=== PATIENT | female | born 1970 | race Caucasian/White ===

== ENCOUNTER 2017-05-09 19:15 | Emergency (ER) | payer OTHER ==
[~2017-05-09] VITALS: Ht 162.5 cm; Wt 72.6 kg
[~2017-05-09 19:15] MED LIST: AMOXICILLIN500 M3 PO; ANUSOL HC30 GM PO; ANUSOL-HC25 MG R; ATIVAN1 MG; AUGMENTIN 500 M1 TAB PO; AUGMENTIN 875875 MG PO; BACTRIM DS 8001 TA1 PO; CATAFLAM50 MG PO; CIPROFLOXACIN500 MG PO; CLINDAMYCIN HC300 MG PO; CLINDAMYCIN150 MG PO; COGENTIN0.5 MG PO; COLACE100 MG PO; DIFLUCAN150 MG PO; HALDOL DECA100 MG/ML IM; HYDROCODONE BIT1 T11 PO; KEFLEX500 MG PO; LOTRIMIN1% T; MEDROL DOSEPAK4 MG PO; METFORMIN500 MG PO; PENICILLIN VK500 MG PO; PREDNISONE20 M1 PO; PROLIXIN PO; SIMVASTATIN5 MG; TESSALON PERLE100 M1 PO; TRAMADOL HCL50 MG PO; ULTRAM50 MG PO; VERMOX100 MG PO; VIBRAMYCIN100 MG PO; VICODIN 5/500 505 MG PO; VISTARIL25 M1 PO; ZOLOFT20 MG/ML PO; ZYRTEC10 MG PO
[2017-05-09 19:41] VITALS: BP 139/70
[2017-05-09 20:27] LABS: BASO # 0.1 10*3/uL (0.0-0.1); BASO % 0.3 % (0.0-1.0); EOS % 0.2 % (1.0-4.0); HEMATOCRIT 46.5 % (37.0-47.0); LYMPH # 4.4 10*3/uL (1.3-4.4); LYMPH % 25.4 % (27.0-41.0); MEAN CELL VOLUME 86.1 fl (81.0-99.0); MEAN CORPUSCULAR HGB 29.6 pg (27.0-31.0); MEAN CORPUSCULAR HGB CONC 34.4 g/dl (33.0-37.0); MEAN PLATELET VOLUME 10.7 fl (9.6-12.3); MONO # 1.2 10*3/uL (0.1-1.0); MONO % 6.9 % (3.0-9.0); NEUT # 11.6 10*3/uL (2.3-7.9); NEUT % 66.9 % (47.0-73.0); PLATELET COUNT AUTOMATED 241 10*3/uL (130-400); RED CELL DISTRI WIDTH 13.4 % (0-14.5); WHITE BLOOD COUNT 17.4 10*3/uL (4.8-10.8)
[2017-05-09 20:37] LABS: ACT PARTIAL THROMBO TIME 26.6 SECONDS (20.8-31.5)
[2017-05-09 20:51] LABS: ALBUMIN 4.7 gm/dl (3.1-4.5); ALKALINE PHOSPHATASE 54 U/L (45-117); BUN 6 mg/dl (7-24); CHLORIDE 103 mmol/L (98-107); CREATININE 0.78 mg/dL (0.55-1.02); POTASSIUM 3.3 mmol/L (3.5-5.1); SGOT/AST 16 IU/L (3-35); SGPT/ALT 20 U/L (12-78); SODIUM 138 mmol/L (136-145); TOTAL PROTEIN 8.7 gm/dL (6.4-8.2)
[2017-05-09 21:02] LABS: BETA-HCG, QUANT < 1.0 mIU/mL (1-3); TROPONIN I < 0.015 ng/ml (<0.045)
== END 2017-05-09 21:03 | disposition left against medical advice (07) ==
LOC: ED 19:15
PROVIDERS: Student in an Organized Health Care Education/Training Program
DX: R00.0 Tachycardia, unspecified (principal); I10 Essential (primary) hypertension; E11.9 Type 2 diabetes mellitus without complications; J44.9 Chronic obstructive pulmonary disease, unspecified; F17.200 Nicotine dependence, unspecified, uncomplicated; Z79.899 Other long term (current) drug therapy

== ENCOUNTER 2017-06-03 05:36 | Emergency (ER) | payer OTHER ==
[~2017-06-03] VITALS: Ht 162.5 cm; Wt 68.0 kg
[2017-06-03 06:16] LABS: BILIRUBIN NEGATIVE (NEGATIVE); BLOOD NEGATIVE (NEGATIVE); CLARITY CLEAR (CLEAR); COLOR YELLOW (YELLOW); GLUCOSE 3+ (NEGATIVE); KETONE NEGATIVE (NEGATIVE); LEUKO ESTERASE NEGATIVE (NEGATIVE); NITRITE NEGATIVE (NEGATIVE); PH 5.5 (5.0-9.0); SPECIFIC GRAVITY <= 1.005 (1.005-1.030); UROBILINOGEN 0.2 E.U./dl (0.2-1.0)
[2017-06-03 06:22] LABS: BASO # 0.1 10*3/uL (0.0-0.1); BASO % 0.5 % (0.0-1.0); EOS # 0.1 10*3/uL (0.0-0.4); EOS % 0.7 % (1.0-4.0); HEMATOCRIT 41.6 % (37.0-47.0); HEMOGLOBIN 14.4 g/dl (12.0-16.0); LYMPH # 2.8 10*3/uL (1.3-4.4); MEAN CELL VOLUME 86.1 fl (81.0-99.0); MEAN CORPUSCULAR HGB 29.8 pg (27.0-31.0); MEAN CORPUSCULAR HGB CONC 34.6 g/dl (33.0-37.0); MEAN PLATELET VOLUME 10.9 fl (9.6-12.3); MONO # 0.9 10*3/uL (0.1-1.0); MONO % 8.2 % (3.0-9.0); NEUT # 6.6 10*3/uL (2.3-7.9); NEUT % 63.3 % (47.0-73.0); PLATELET COUNT AUTOMATED 223 10*3/uL (130-400); RED BLOOD COUNT 4.83 10*6/uL (4.10-5.10); RED CELL DISTRI WIDTH 13.2 % (0-14.5); WHITE BLOOD COUNT 10.4 10*3/uL (4.8-10.8)
[2017-06-03 06:30] LABS: URINE AMPHETAMINES < 1000 (1000ng/ml); URINE BARBITURATES < 200 (200ng/ml); URINE BENZODIAZEPINES < 200 (200ng/ml); URINE CANNABINOIDS (THC) < 50 (50ng/ml); URINE COCAINE < 300 (300ng/ml); URINE METHADONE < 300 (300ng/ml); URINE OPIATES < 300 (300ng/ml)
[2017-06-03 06:34] LABS: URINE PHENCYCLIDINE < 25 (25ng/ml)
[2017-06-03 06:34] LABS: BUN 5 mg/dl (7-24); CHLORIDE 102 mmol/L (98-107); CREATININE 0.75 mg/dL (0.55-1.02); POTASSIUM 3.5 mmol/L (3.5-5.1); SODIUM 136 mmol/L (136-145)
[2017-06-03 06:37] LABS: BACTERIA TRACE
[2017-06-03 06:43] LABS: ETHYL ALCOHOL < 3.0 mg/dl (<3)
[2017-06-03 06:45] LABS: ACETAMINOPHEN (TYLENOL) < 2.0 ug/ml (10-30); B-hCG (QUALITATIVE) NEGATIVE (NEGATIVE)
[2017-06-03 16:09] VITALS: BP 105/60
== END 2017-06-03 17:21 | disposition home health service (06) ==
LOC: ED 05:36
PROVIDERS: Emergency Medicine Emergency Medical Services
DX: F23 Brief psychotic disorder (principal); F25.9 Schizoaffective disorder, unspecified; J44.9 Chronic obstructive pulmonary disease, unspecified; Z79.899 Other long term (current) drug therapy

== ENCOUNTER 2017-06-25 14:11 | Emergency (ER) | payer OTHER ==
[~2017-06-25] VITALS: Ht 165.1 cm; Wt 81.6 kg
[2017-06-25 14:39] LABS: BASO % 0.3 % (0.0-1.0); EOS % 0.5 % (1.0-4.0); HEMATOCRIT 44.4 % (37.0-47.0); HEMOGLOBIN 14.8 g/dl (12.0-16.0); LYMPH # 2.6 10*3/uL (1.3-4.4); LYMPH % 29.3 % (27.0-41.0); MEAN CELL VOLUME 87.2 fl (81.0-99.0); MEAN CORPUSCULAR HGB 29.1 pg (27.0-31.0); MEAN CORPUSCULAR HGB CONC 33.3 g/dl (33.0-37.0); MEAN PLATELET VOLUME 9.8 fl (9.6-12.3); MONO # 0.6 10*3/uL (0.1-1.0); MONO % 6.4 % (3.0-9.0); NEUT # 5.5 10*3/uL (2.3-7.9); NEUT % 62.8 % (47.0-73.0); PLATELET COUNT AUTOMATED 234 10*3/uL (130-400); RED BLOOD COUNT 5.09 10*6/uL (4.10-5.10); RED CELL DISTRI WIDTH 13.4 % (0-14.5); WHITE BLOOD COUNT 8.8 10*3/uL (4.8-10.8)
[2017-06-25 14:54] LABS: ALBUMIN 3.7 gm/dl (3.1-4.5); ALKALINE PHOSPHATASE 77 U/L (45-117); BUN 3 mg/dl (7-24); CHLORIDE 105 mmol/L (98-107); CREATININE 0.78 mg/dL (0.55-1.02); POTASSIUM 3.5 mmol/L (3.5-5.1); SGOT/AST 20 IU/L (3-35); SGPT/ALT 22 U/L (12-78); SODIUM 139 mmol/L (136-145); TOTAL PROTEIN 7.6 gm/dL (6.4-8.2)
[2017-06-25 14:58] LABS: ACETAMINOPHEN (TYLENOL) < 2.0 ug/ml (10-30); ETHYL ALCOHOL < 3.0 mg/dl (<3)
[2017-06-25 15:28] LABS: BILIRUBIN NEGATIVE (NEGATIVE); BLOOD NEGATIVE (NEGATIVE); CLARITY CLEAR (CLEAR); COLOR YELLOW (YELLOW); GLUCOSE 3+ (NEGATIVE); KETONE 3+ (NEGATIVE); LEUKO ESTERASE NEGATIVE (NEGATIVE); NITRITE NEGATIVE (NEGATIVE); UROBILINOGEN 0.2 E.U./dl (0.2-1.0)
[2017-06-25 15:37] LABS: URINE AMPHETAMINES < 1000 (1000ng/ml); URINE BARBITURATES < 200 (200ng/ml); URINE BENZODIAZEPINES < 200 (200ng/ml); URINE CANNABINOIDS (THC) < 50 (50ng/ml); URINE COCAINE < 300 (300ng/ml); URINE METHADONE < 300 (300ng/ml); URINE OPIATES < 300 (300ng/ml)
[2017-06-25 15:39] LABS: BACTERIA 1+; WBC 0-2 wbc/hpf (0-5)
[2017-06-25 15:41] LABS: URINE PHENCYCLIDINE < 25 (25ng/ml)
[2017-06-25 18:00] VITALS: BP 114/72
== END 2017-06-25 19:40 | disposition other institution (70) ==
LOC: ED 14:11
PROVIDERS: Physician Assistant
DX: F23 Brief psychotic disorder (principal); Z98.890 Other specified postprocedural states; Z79.899 Other long term (current) drug therapy

== ENCOUNTER 2017-07-12 03:26 | Emergency (ER) | payer OTHER | END 2017-07-12 04:23 | disposition left against medical advice (07) | LOC: ED 03:26 | DX: R07.9 Chest pain, unspecified (principal); J44.1 Chronic obstructive pulmonary disease with (acute) exacerbation; F25.9 Schizoaffective disorder, unspecified; Z79.899 Other long term (current) drug therapy ==

== ENCOUNTER 2017-07-12 09:51 | Emergency (ER) | payer OTHER ==
[2017-07-12 10:06] LABS: BILIRUBIN NEGATIVE (NEGATIVE); BLOOD TRACE-INTACT (NEGATIVE); CLARITY SL CLOUDY (CLEAR); COLOR YELLOW (YELLOW); GLUCOSE 3+ (NEGATIVE); KETONE 2+ (NEGATIVE); LEUKO ESTERASE NEGATIVE (NEGATIVE); NITRITE NEGATIVE (NEGATIVE); PH 5.5 (5.0-9.0); SPECIFIC GRAVITY 1.015 (1.005-1.030); UROBILINOGEN 0.2 E.U./dl (0.2-1.0)
[2017-07-12 10:14] LABS: BACTERIA TRACE; EPITHELIAL CELLS 21-30; URINE AMPHETAMINES < 1000 (1000ng/ml); URINE BARBITURATES < 200 (200ng/ml); URINE BENZODIAZEPINES < 200 (200ng/ml); URINE CANNABINOIDS (THC) < 50 (50ng/ml); URINE COCAINE < 300 (300ng/ml); URINE METHADONE < 300 (300ng/ml); URINE OPIATES < 300 (300ng/ml)
[2017-07-12 10:15] LABS: URINE PHENCYCLIDINE < 25 (25ng/ml); WBC 0-2 wbc/hpf (0-5)
[2017-07-12 13:46] LABS: BASO # 0.1 10*3/uL (0.0-0.1); BASO % 0.4 % (0.0-1.0); EOS # 0.1 10*3/uL (0.0-0.4); HEMATOCRIT 44.9 % (37.0-47.0); LYMPH # 3.2 10*3/uL (1.3-4.4); LYMPH % 28.4 % (27.0-41.0); MEAN CELL VOLUME 86.8 fl (81.0-99.0); MEAN CORPUSCULAR HGB CONC 33.4 g/dl (33.0-37.0); MEAN PLATELET VOLUME 10.3 fl (9.6-12.3); MONO # 0.9 10*3/uL (0.1-1.0); NEUT # 6.9 10*3/uL (2.3-7.9); NEUT % 61.7 % (47.0-73.0); PLATELET COUNT AUTOMATED 280 10*3/uL (130-400); RED BLOOD COUNT 5.17 10*6/uL (4.10-5.10); RED CELL DISTRI WIDTH 13.9 % (0-14.5); WHITE BLOOD COUNT 11.2 10*3/uL (4.8-10.8)
[2017-07-12 14:00] LABS: ALBUMIN 3.8 gm/dl (3.1-4.5); ALKALINE PHOSPHATASE 82 U/L (45-117); BUN 10 mg/dl (7-24); CHLORIDE 98 mmol/L (98-107); CREATININE 0.77 mg/dL (0.55-1.02); SGOT/AST 14 IU/L (3-35); SGPT/ALT 19 U/L (12-78); SODIUM 133 mmol/L (136-145); TOTAL PROTEIN 7.7 gm/dL (6.4-8.2)
[2017-07-12 14:08] LABS: ETHYL ALCOHOL < 3.0 mg/dl (<3)
[2017-07-14 06:25] LABS: BUN 12 mg/dl (7-24); CHLORIDE 102 mmol/L (98-107); CREATININE 0.75 mg/dL (0.55-1.02); POTASSIUM 4.5 mmol/L (3.5-5.1); SODIUM 137 mmol/L (136-145)
[2017-07-14 14:00] VITALS: BP 118/62
== END 2017-07-14 16:50 | disposition home health service (06) ==
LOC: ED 09:51
PROVIDERS: Emergency Medicine; Emergency Medicine Emergency Medical Services
DX: F23 Brief psychotic disorder (principal); F25.9 Schizoaffective disorder, unspecified; Z91.14 Patient's other noncompliance with medication regimen; Z98.890 Other specified postprocedural states; Z79.899 Other long term (current) drug therapy

== ENCOUNTER 2017-11-13 11:12 | Emergency (ER) | payer OTHER ==
[~2017-11-13] VITALS: Ht 172.7 cm; Wt 77.1 kg
[2017-11-13 11:37] LABS: BASO # 0.1 10*3/uL (0.0-0.1); BASO % 0.4 % (0.0-1.0); EOS % 0.2 % (1.0-4.0); HEMATOCRIT 47.2 % (37.0-47.0); HEMOGLOBIN 15.6 g/dl (12.0-16.0); LYMPH # 2.2 10*3/uL (1.3-4.4); LYMPH % 17.5 % (27.0-41.0); MEAN CELL VOLUME 87.9 fl (81.0-99.0); MEAN CORPUSCULAR HGB 29.1 pg (27.0-31.0); MEAN CORPUSCULAR HGB CONC 33.1 g/dl (33.0-37.0); MEAN PLATELET VOLUME 10.3 fl (9.6-12.3); MONO # 0.9 10*3/uL (0.1-1.0); MONO % 7.3 % (3.0-9.0); NEUT # 9.4 10*3/uL (2.3-7.9); PLATELET COUNT AUTOMATED 275 10*3/uL (130-400); RED BLOOD COUNT 5.37 10*6/uL (4.10-5.10); RED CELL DISTRI WIDTH 13.9 % (0-14.5); WHITE BLOOD COUNT 12.7 10*3/uL (4.8-10.8)
[2017-11-13 11:52] LABS: ALBUMIN 4.5 gm/dl (3.1-4.5); ALKALINE PHOSPHATASE 81 U/L (45-117); BUN 9 mg/dl (7-24); CHLORIDE 101 mmol/L (98-107); CREATININE 1.05 mg/dL (0.55-1.02); SGOT/AST 14 IU/L (3-35); SGPT/ALT 21 U/L (12-78); SODIUM 136 mmol/L (136-145); TOTAL PROTEIN 8.7 gm/dL (6.4-8.2)
[2017-11-13 11:54] LABS: ACETAMINOPHEN (TYLENOL) < 2.0 ug/ml (10-30)
[2017-11-13 11:55] LABS: ETHYL ALCOHOL < 3.0 mg/dl (<3)
[2017-11-13 12:20] VITALS: BP 152/68
[2017-11-13 12:55] LABS: BILIRUBIN NEGATIVE (NEGATIVE); BLOOD TRACE-INTACT (NEGATIVE); CLARITY SL CLOUDY (CLEAR); COLOR YELLOW (YELLOW); GLUCOSE 3+ (NEGATIVE); KETONE 1+ (NEGATIVE); LEUKO ESTERASE NEGATIVE (NEGATIVE); NITRITE NEGATIVE (NEGATIVE); UROBILINOGEN 0.2 E.U./dl (0.2-1.0)
[2017-11-13 13:03] LABS: URINE AMPHETAMINES < 1000 (1000ng/ml); URINE BARBITURATES < 200 (200ng/ml); URINE BENZODIAZEPINES < 200 (200ng/ml); URINE CANNABINOIDS (THC) < 50 (50ng/ml); URINE COCAINE < 300 (300ng/ml); URINE METHADONE < 300 (300ng/ml); URINE OPIATES < 300 (300ng/ml)
[2017-11-13 13:05] LABS: EPITHELIAL CELLS TNTC
[2017-11-13 13:06] LABS: BACTERIA TRACE; RBC 0-2 rbc/hpf (0-2)
[2017-11-13 13:08] LABS: URINE PHENCYCLIDINE < 25 (25ng/ml)
[2017-11-13] MEDS ORDERED: COLACE100 MG PO (17:16)
[2017-11-13] MEDS ORDERED: DEPAKOTE ER250 MG PO (17:17)
[2017-11-13] MEDS ORDERED: GEODON40 MG PO (17:18)
[2017-11-13] MEDS ORDERED: GEODON80 MG PO (17:18)
[2017-11-13] MEDS ORDERED: METFORMIN ER500 MG PO (17:19)
[2017-11-13] MEDS ORDERED: ATIVAN0.5 MG PO (17:19)
== END 2017-11-13 18:20 | disposition home health service (06) ==
LOC: ED 11:12
PROVIDERS: Nurse Practitioner Family
DX: F23 Brief psychotic disorder (principal); Z98.890 Other specified postprocedural states; Z79.899 Other long term (current) drug therapy

== ENCOUNTER 2017-11-20 22:53 | Emergency (ER) | payer OTHER ==
[~2017-11-20] VITALS: Ht 167.6 cm; Wt 72.6 kg
--- NOTE | ~2017-11-20 | EKG ---
[place], [place] ELECTROCARDIOGRAM REPORT NAME: GAY OWEN UNIT #: [id number] ROOM: DOCTOR: EPIPHANY DRAFT REPORT BIRTHDATE: [birth year] [facility] Test Date: 2017-11-23 Test Time: 11:23:27 Pat Name: GAY OWEN Department: Room: Gender: F Operations Support Analyst: Heather Torres : 1970 Requested By: VICENTE NORTON Order Number: [id number] Reading MD: Vj Peterson MD Measurements Intervals [place] Rate: 110 P: 66 VT: 145 QRS: 34 QRSD: 88 T: 36 QT: 372 QTc: 504 Interpretive Statements Sinus tachycardia Inferior infarct, old Electronically Signed On 11-24-2017 15:36:50 PDT by Vj Peterson MD CM:EKGRPT:ELECTROCARDIOGRAM REPORT [id number] VICENTE BOONE DRAFT REPORT VICENTE NORTON M.D.
[~2017-11-20 22:53] MED LIST changes: +ATIVAN0.5 MG PO; +DEPAKOTE ER250 MG PO; +GEODON40 MG PO; +GEODON80 MG PO; +METFORMIN ER500 MG PO
[2017-11-21 09:59] LABS: BASO # 0.1 10*3/uL (0.0-0.1); BASO % 0.7 % (0.0-1.0); EOS # 0.1 10*3/uL (0.0-0.4); EOS % 1.2 % (1.0-4.0); HEMATOCRIT 45.7 % (37.0-47.0); HEMOGLOBIN 15.2 g/dl (12.0-16.0); LYMPH # 3.3 10*3/uL (1.3-4.4); LYMPH % 34.1 % (27.0-41.0); MEAN CELL VOLUME 87.7 fl (81.0-99.0); MEAN CORPUSCULAR HGB 29.2 pg (27.0-31.0); MEAN CORPUSCULAR HGB CONC 33.3 g/dl (33.0-37.0); MEAN PLATELET VOLUME 10.2 fl (9.6-12.3); MONO # 0.9 10*3/uL (0.1-1.0); MONO % 9.1 % (3.0-9.0); NEUT # 5.3 10*3/uL (2.3-7.9); NEUT % 54.6 % (47.0-73.0); PLATELET COUNT AUTOMATED 228 10*3/uL (130-400); RED BLOOD COUNT 5.21 10*6/uL (4.10-5.10); RED CELL DISTRI WIDTH 13.5 % (0-14.5); WHITE BLOOD COUNT 9.8 10*3/uL (4.8-10.8)
[2017-11-21 10:18] LABS: ALBUMIN 3.8 gm/dl (3.1-4.5); ALKALINE PHOSPHATASE 76 U/L (45-117); BUN 11 mg/dl (7-24); CHLORIDE 103 mmol/L (98-107); CREATININE 0.73 mg/dL (0.55-1.02); POTASSIUM 3.7 mmol/L (3.5-5.1); SGOT/AST 12 IU/L (3-35); SGPT/ALT 19 U/L (12-78); SODIUM 137 mmol/L (136-145)
[2017-11-21 10:20] LABS: BILIRUBIN NEGATIVE (NEGATIVE); BLOOD NEGATIVE (NEGATIVE); CLARITY CLEAR (CLEAR); COLOR YELLOW (YELLOW); GLUCOSE 3+ (NEGATIVE); KETONE NEGATIVE (NEGATIVE); LEUKO ESTERASE NEGATIVE (NEGATIVE); NITRITE NEGATIVE (NEGATIVE); PH 5.5 (5.0-9.0); SPECIFIC GRAVITY 1.025 (1.005-1.030); UROBILINOGEN 0.2 E.U./dl (0.2-1.0)
[2017-11-21 10:21] LABS: ACETAMINOPHEN (TYLENOL) < 2.0 ug/ml (10-30); ETHYL ALCOHOL < 3.0 mg/dl (<3)
[2017-11-21 10:29] LABS: URINE AMPHETAMINES < 1000 (1000ng/ml); URINE BARBITURATES < 200 (200ng/ml); URINE BENZODIAZEPINES < 200 (200ng/ml); URINE CANNABINOIDS (THC) < 50 (50ng/ml); URINE COCAINE < 300 (300ng/ml); URINE METHADONE < 300 (300ng/ml); URINE OPIATES < 300 (300ng/ml)
[2017-11-21 10:32] LABS: BACTERIA 1+; MUCOUS 1+
[2017-11-21 10:33] LABS: URINE PHENCYCLIDINE < 25 (25ng/ml)
[2017-11-23 11:44] LABS: BETA-HCG, QUANT < 1.0 mIU/mL (1-3); VALPROIC ACID (DEPAKENE) < 3.0 ug/ml (50-100)
[2017-11-23 16:30] VITALS: BP 144/62
== END 2017-11-23 18:47 | disposition home health service (06) ==
LOC: ED 22:53
PROVIDERS: Emergency Medicine; Emergency Medicine Emergency Medical Services
DX: F29 Unspecified psychosis not due to a substance or known physiological condition (principal); F25.9 Schizoaffective disorder, unspecified; Z79.899 Other long term (current) drug therapy; Z98.890 Other specified postprocedural states

== ENCOUNTER 2017-12-18 20:08 | Emergency (ER) | payer OTHER ==
[~2017-12-18] VITALS: Ht 170.1 cm; Wt 70.3 kg
--- NOTE | ~2017-12-18 | EKG ---
[place], [place] ELECTROCARDIOGRAM REPORT NAME: GAY OWEN UNIT #: [id number] ROOM: DOCTOR: EPIPHANY DRAFT REPORT BIRTHDATE: [birth year] [facility] Test Date: 2017-12-18 Test Time: 20:32:39 Pat Name: GAY OWEN Department: er Room: 8 Gender: F Cuff Maker: Carlos Dickerson : 1970 Requested By: KAREN PRO Order Number: [id number] Reading MD: Mark Lebron MD Measurements Intervals [place] Rate: 115 P: 71 ND: 147 QRS: -8 QRSD: 91 T: 34 QT: 347 QTc: 480 Interpretive Statements Sinus tachycardia Compared to ECG 11/23/2017 11:23:27 Myocardial infarct finding no longer present Electronically Signed On 12-21-2017 4:22:18 PDT by Mark Lebron MD CM:EKGRPT:ELECTROCARDIOGRAM REPORT 31 KAREN HUNG DRAFT REPORT KAREN PRO DO
[~2017-12-18 20:08] MED LIST changes: +DEPAKOTE DR500 MG PO; -DEPAKOTE ER250 MG PO; +GLUCOPHAGE500 M1 PO; -METFORMIN ER500 MG PO
[2017-12-19 01:03] LABS: BILIRUBIN 1+ (NEGATIVE); BLOOD 3+ (NEGATIVE); CLARITY CLOUDY (CLEAR); GLUCOSE 3+ (NEGATIVE); KETONE 2+ (NEGATIVE); LEUKO ESTERASE NEGATIVE (NEGATIVE); NITRITE POSITIVE (NEGATIVE); SPECIFIC GRAVITY 1.025 (1.005-1.030)
[2017-12-19 01:11] LABS: BACTERIA 3+; COLOR RED (YELLOW); RBC TNTC rbc/hpf (0-2)
[2017-12-19 01:21] LABS: URINE AMPHETAMINES < 1000 (1000ng/ml); URINE BARBITURATES < 200 (200ng/ml); URINE BENZODIAZEPINES < 200 (200ng/ml); URINE CANNABINOIDS (THC) < 50 (50ng/ml); URINE COCAINE < 300 (300ng/ml); URINE METHADONE < 300 (300ng/ml); URINE OPIATES < 300 (300ng/ml)
[2017-12-19 01:22] LABS: URINE PHENCYCLIDINE < 25 (25ng/ml)
[2017-12-19 10:38] LABS: BASO # 0.1 10*3/uL (0.0-0.1); BASO % 0.7 % (0.0-1.0); EOS # 0.2 10*3/uL (0.0-0.4); HEMATOCRIT 45.5 % (37.0-47.0); HEMOGLOBIN 15.3 g/dl (12.0-16.0); LYMPH # 2.8 10*3/uL (1.3-4.4); LYMPH % 33.2 % (27.0-41.0); MEAN CELL VOLUME 87.3 fl (81.0-99.0); MEAN CORPUSCULAR HGB 29.4 pg (27.0-31.0); MEAN CORPUSCULAR HGB CONC 33.6 g/dl (33.0-37.0); MEAN PLATELET VOLUME 10.4 fl (9.6-12.3); MONO # 0.8 10*3/uL (0.1-1.0); MONO % 9.6 % (3.0-9.0); NEUT # 4.5 10*3/uL (2.3-7.9); NEUT % 54.1 % (47.0-73.0); PLATELET COUNT AUTOMATED 209 10*3/uL (130-400); RED BLOOD COUNT 5.21 10*6/uL (4.10-5.10); RED CELL DISTRI WIDTH 13.2 % (0-14.5); WHITE BLOOD COUNT 8.4 10*3/uL (4.8-10.8)
[2017-12-19 10:46] LABS: ACT PARTIAL THROMBO TIME 23.4 SECONDS (20.8-31.5)
[2017-12-19 10:55] LABS: ALBUMIN 3.7 gm/dl (3.1-4.5); ALKALINE PHOSPHATASE 62 U/L (45-117); BUN 8 mg/dl (7-24); CHLORIDE 103 mmol/L (98-107); CREATININE 0.76 mg/dL (0.55-1.02); POTASSIUM 3.5 mmol/L (3.5-5.1); SGOT/AST 17 IU/L (3-35); SGPT/ALT 25 U/L (12-78); SODIUM 138 mmol/L (136-145); TOTAL PROTEIN 7.7 gm/dL (6.4-8.2)
[2017-12-20 12:00] VITALS: BP 120/60
== END 2017-12-20 12:55 | disposition home health service (06) ==
LOC: ED 20:08
PROVIDERS: Emergency Medicine
DX: F25.9 Schizoaffective disorder, unspecified (principal); F20.9 Schizophrenia, unspecified; R44.0 Auditory hallucinations; Z79.899 Other long term (current) drug therapy; Z98.890 Other specified postprocedural states

== ENCOUNTER 2018-01-05 00:33 | Inpatient (IN) | payer OTHER ==
[~2018-01-05] VITALS: Ht 167.6 cm; Wt 75.9 kg
[2018-01-05] VITALS (53 sets, daily range): BP systolic 60–115; BP diastolic 33–74
--- NOTE | ~2018-01-05 | CON ---
[place], [place] RE[facility] OF CONSULTATION [id number] UN[facility] #: [id number] ROOM: [place] [address] DOCTOR: PHD LUDIVINA ARRIAGA BIRTHDATE: [birth year] DOS: 01/05/2018 HISTORY OF PRESENT ILLNESS: The patient is a 47-year-old female with a history of bipolar disorder, who was referred by the hospitalist due to symptoms of psychosis. She was found wandering around the gas station and altered mental status. At the present time, the patient is on the Intensive Care Unit at [facility]. The patient has a daughter who lives with the patient's sister. The patient stated she is homeless, but per [facility], she does have an apartment. Her casework supervisor is Kesha West. She was discharged from [facility] on 01/03/2018 with a followup appointment with her nurse practitioner on Wednesday, the , which she did not attend. The patient has been psychiatrically hospitalized many times in the past year. PAST MEDICAL HISTORY: Type 2 diabetes, hyperlipidemia, GERD, COPD. MEDICATIONS: Lovenox, norepinephrine bitartrate, Zofran, Zithromax, Rocephin and Restoril. PHYSICAL EXAMINATION: The patient is drowsy and oriented to person, place and time. Eye contact and social skills are poor. Speech was mumbled. Expressive and receptive language were within normal limits on a conversational basis. Thought process was disorganized and content was noteworthy for paranoia and delusional content. There were no apparent hallucinations. She denied suicidal and homicidal ideation, plan and intent. Insight and judgment are poor. She states that she would like to participate in inpatient treatment to stabilize her psychiatric symptoms. I spoke with Meghna March, a nurse [facility] who is familiar with the patient. She stated that the patient has not been psychiatrically stable in some time despite numerous inpatient hospitalizations. Per the patient's casework supervisor who spoke with staff on the ICU, the patient does not adhere to treatment recommendations or follow through with her appointments. In my opinion, given the nature of the patient's continued psychiatric symptoms, she may benefit from treatment at [facility] where she could receive further stabilization. DIAGNOSIS: Bipolar 1 disorder, unspecified. RECOMMENDATIONS: Inpatient psychiatric treatment to provide further stabilization. It is likely that [facility] may be able to provide her with longer care. Thank you very much for this consult. [place], [place] REPORT OF CONSULTATION NAME: GAY OWEN UNIT #: [id number] ROOM: [place] [address] DOCTOR: ANGEL, PHD LUDIVINA BIRTHDATE: [birth year] Lori Arriaga, PhD CM:CONSTR:REPORT OF CONSULTATION 1725 01/06/18 0530 interface
--- NOTE | ~2018-01-05 | EKG ---
[place], [place] ELECTROCARDIOGRAM REPORT NAME: GAY OWEN UNIT #: [id number] ROOM: [place] [address] DOCTOR: EPIPHANY DRAFT REPORT BIRTHDATE: [birth year] [facility] Test Date: 2018-01-05 Test Time: 00:56:21 Pat Name: GAY OWEN Department: ER Room: [place] [address] Gender: F Veneer Joiner: Sugey Wei : 1970 Requested By: RONEY CHEEMA Order Number: [id number] Reading MD: Mark Lebron MD Measurements Intervals [place] Rate: 130 P: 69 [place]: 128 QRS: -7 QRSD: 86 T: 43 QT: 337 QTc: 496 Interpretive Statements Sinus tachycardia Probable left atrial enlargement Borderline prolonged QT interval Compared to ECG 12/18/2017 20:32:39 No significant changes Electronically Signed On 01-06-2018 11:03:58 PDT by Mark Lebron MD CM:EKGRPT:ELECTROCARDIOGRAM REPORT [id number] RONEY CHEEMA MD EPIPHANY DRAFT REPORT RONEY CHEEMA MD
[2018-01-05 01:16] LABS: BASO % 0.3 % (0.0-1.0); EOS % 0.2 % (1.0-4.0); HEMATOCRIT 40.2 % (37.0-47.0); HEMOGLOBIN 13.6 g/dl (12.0-16.0); LYMPH # 2.7 10*3/uL (1.3-4.4); LYMPH % 21.9 % (27.0-41.0); MEAN CELL VOLUME 87.2 fl (81.0-99.0); MEAN CORPUSCULAR HGB 29.5 pg (27.0-31.0); MEAN CORPUSCULAR HGB CONC 33.8 g/dl (33.0-37.0); MONO # 1.3 10*3/uL (0.1-1.0); MONO % 10.4 % (3.0-9.0); NEUT # 8.2 10*3/uL (2.3-7.9); NEUT % 66.9 % (47.0-73.0); PLATELET COUNT AUTOMATED 166 10*3/uL (130-400); RED BLOOD COUNT 4.61 10*6/uL (4.10-5.10); RED CELL DISTRI WIDTH 13.1 % (0-14.5); WHITE BLOOD COUNT 12.3 10*3/uL (4.8-10.8)
[2018-01-05 01:26] LABS: ACT PARTIAL THROMBO TIME 26.4 SECONDS (20.8-31.5); INTERNATIONAL NORM RATIO 1.1 (2.0-3.5)
[2018-01-05 01:32] LABS: ALBUMIN 3.6 gm/dl (3.1-4.5); ALKALINE PHOSPHATASE 54 U/L (45-117); BUN 7 mg/dl (7-24); CHLORIDE 105 mmol/L (98-107); CPK 117 U/L (26-192); SGOT/AST 7 IU/L (3-35); SGPT/ALT 13 U/L (12-78); SODIUM 137 mmol/L (136-145); THYROXINE (T4) TOTAL 7.7 ug/dl (4.8-13.9); TOTAL PROTEIN 7.2 gm/dL (6.4-8.2)
[2018-01-05 01:33] LABS: CKMB 1.6 ng/ml (0.5-3.6); ETHYL ALCOHOL < 3.0 mg/dl (<3); TROPONIN I < 0.015 ng/ml (<0.045)
[2018-01-05 01:36] LABS: URINE AMPHETAMINES < 1000 (1000ng/ml); URINE BARBITURATES < 200 (200ng/ml); URINE BENZODIAZEPINES < 200 (200ng/ml); URINE CANNABINOIDS (THC) < 50 (50ng/ml); URINE COCAINE < 300 (300ng/ml); URINE METHADONE < 300 (300ng/ml); URINE OPIATES < 300 (300ng/ml); URINE PHENCYCLIDINE < 25 (25ng/ml)
[2018-01-05 02:27] LABS: BILIRUBIN NEGATIVE (NEGATIVE); BLOOD TRACE-INTACT (NEGATIVE); CLARITY CLEAR (CLEAR); COLOR YELLOW (YELLOW); GLUCOSE 2+ (NEGATIVE); KETONE 2+ (NEGATIVE); LEUKO ESTERASE NEGATIVE (NEGATIVE); NITRITE NEGATIVE (NEGATIVE); PH 5.5 (5.0-9.0); UROBILINOGEN 0.2 E.U./dl (0.2-1.0)
[2018-01-05 02:34] LABS: BACTERIA TRACE
[2018-01-05 06:08] LABS: BASO % 0.3 % (0.0-1.0); EOS % 0.2 % (1.0-4.0); HEMATOCRIT 37.7 % (37.0-47.0); HEMOGLOBIN 12.2 g/dl (12.0-16.0); LYMPH # 1.9 10*3/uL (1.3-4.4); LYMPH % 15.6 % (27.0-41.0); MEAN CORPUSCULAR HGB 29.1 pg (27.0-31.0); MEAN CORPUSCULAR HGB CONC 32.4 g/dl (33.0-37.0); MEAN PLATELET VOLUME 10.6 fl (9.6-12.3); MONO # 0.9 10*3/uL (0.1-1.0); MONO % 7.7 % (3.0-9.0); NEUT # 9.2 10*3/uL (2.3-7.9); NEUT % 75.7 % (47.0-73.0); PLATELET COUNT AUTOMATED 159 10*3/uL (130-400); RED BLOOD COUNT 4.19 10*6/uL (4.10-5.10); RED CELL DISTRI WIDTH 13.3 % (0-14.5); WHITE BLOOD COUNT 12.2 10*3/uL (4.8-10.8)
[2018-01-05 06:11] LABS: ALBUMIN 3.3 gm/dl (3.1-4.5); ALKALINE PHOSPHATASE 51 U/L (45-117); BUN 9 mg/dl (7-24); CHLORIDE 108 mmol/L (98-107); CHOLESTEROL 173 mg/dL (<200); CREATININE 0.71 mg/dL (0.55-1.02); HDL CHOLESTEROL 41 mg/dl (40-60); LDL CHOLESTEROL 105 mg/dL (9-159); PHOSPHOROUS 3.9 mg/dL (2.5-4.9); SGOT/AST 6 IU/L (3-35); SGPT/ALT 11 U/L (12-78); SODIUM 137 mmol/L (136-145); TOTAL PROTEIN 6.5 gm/dL (6.4-8.2); TRIGLYCERIDES 137 mg/dl (<150); VLDL CHOLESTEROL 27 mg/dL (6-40)
[2018-01-05 06:19] LABS: POTASSIUM 4.5 mmol/L (3.5-5.1)
[2018-01-05 06:30] LABS: ACT PARTIAL THROMBO TIME 27.8 SECONDS (20.8-31.5); INTERNATIONAL NORM RATIO 1.1 (2.0-3.5)
[2018-01-05 07:17] LABS: VITAMIN D, 25-HYDROXY 20.4 ng/mL (30-100)
[2018-01-05] MEDS ORDERED: ZOCOR20 MG PO (15:39)
[2018-01-05] MEDS ORDERED: BENZTROPINE ME0.5 MG PO (15:40)
[2018-01-05] MEDS ORDERED: VISTARIL50 MG PO (15:41)
[2018-01-05] MEDS ORDERED: AMARYL4 MG PO (15:43)
[2018-01-05] MEDS ORDERED: ZESTRIL2.5 MG PO (15:44)
[2018-01-05] MEDS ORDERED: ASPIR 8181 MG PO (15:46)
== END 2018-01-05 21:55 | disposition left against medical advice (07) | DRG 871 ==
LOC: ED 00:33 → EDHOLD 02:13 → ICCU 02:13
PROVIDERS: Emergency Medicine; Family Medicine
DX: A41.9 Sepsis, unspecified organism (principal); G93.41 Metabolic encephalopathy; J18.1 Lobar pneumonia, unspecified organism; E87.2 Acidosis; F23 Brief psychotic disorder; I95.9 Hypotension, unspecified; E87.6 Hypokalemia; E11.65 Type 2 diabetes mellitus with hyperglycemia; J44.9 Chronic obstructive pulmonary disease, unspecified; F25.9 Schizoaffective disorder, unspecified; R65.20 Severe sepsis without septic shock; E55.9 Vitamin D deficiency, unspecified; E78.5 Hyperlipidemia, unspecified; K21.9 Gastro-esophageal reflux disease without esophagitis; F31.9 Bipolar disorder, unspecified; Z79.899 Other long term (current) drug therapy; Z82.49 Family history of ischemic heart disease and other diseases of the circulatory system; Z59.0 Homelessness

== ENCOUNTER 2018-01-06 17:09 | Emergency (ER) | payer OTHER ==
[~2018-01-06] VITALS: Ht 162.5 cm; Wt 63.5 kg
--- NOTE | ~2018-01-06 | EKG ---
[place], [place] ELECTROCARDIOGRAM REPORT NAME: GAY OWEN UNIT #: [id number] ROOM: DOCTOR: EPIPHANY DRAFT REPORT BIRTHDATE: [birth year] [facility] Test Date: 2018-01-06 Test Time: 17:51:11 Pat Name: GAY OWEN Department: ER Room: 4 Gender: F Dean Of Education: Heather Clayton : 1970 Requested By: STEPHANIE MADRIGAL DNP Order Number: [id number] Reading MD: Mark Lebron MD Measurements Intervals [place] Rate: 130 P: 73 [place]: 129 QRS: 4 QRSD: 83 T: 35 QT: 341 QTc: 502 Interpretive Statements Sinus tachycardia Borderline low voltage, extremity leads Borderline prolonged QT interval Compared to ECG 01/05/2018 00:56:21 No significant changes Electronically Signed On 01-10-2018 9:06:41 PDT by Mark Lebron MD CM:EKGRPT:ELECTROCARDIOGRAM REPORT [id number] STEPHANIE BOONE DRAFT REPORT STEPHANIE MADRIGAL DNP
[~2018-01-06 17:09] MED LIST changes: +AMARYL4 MG PO; +ASPIR 8181 MG PO; +BENZTROPINE ME0.5 MG PO; +VISTARIL50 MG PO; +ZESTRIL2.5 MG PO; +ZOCOR20 MG PO
[2018-01-06 17:18] VITALS: BP 121/70
[2018-01-06 17:49] LABS: BASO # 0.1 10*3/uL (0.0-0.1); BASO % 0.6 % (0.0-1.0); EOS % 0.2 % (1.0-4.0); HEMATOCRIT 41.8 % (37.0-47.0); LYMPH # 2.6 10*3/uL (1.3-4.4); LYMPH % 24.3 % (27.0-41.0); MEAN CELL VOLUME 88.6 fl (81.0-99.0); MEAN CORPUSCULAR HGB 29.7 pg (27.0-31.0); MEAN CORPUSCULAR HGB CONC 33.5 g/dl (33.0-37.0); MEAN PLATELET VOLUME 10.1 fl (9.6-12.3); MONO % 9.1 % (3.0-9.0); NEUT # 7.1 10*3/uL (2.3-7.9); NEUT % 65.2 % (47.0-73.0); PLATELET COUNT AUTOMATED 203 10*3/uL (130-400); RED BLOOD COUNT 4.72 10*6/uL (4.10-5.10); RED CELL DISTRI WIDTH 13.3 % (0-14.5); WHITE BLOOD COUNT 10.8 10*3/uL (4.8-10.8)
[2018-01-06 18:07] LABS: ALBUMIN 4.1 gm/dl (3.1-4.5); ALKALINE PHOSPHATASE 62 U/L (45-117); BUN 6 mg/dl (7-24); CHLORIDE 108 mmol/L (98-107); CREATININE 0.95 mg/dL (0.55-1.02); POTASSIUM 3.7 mmol/L (3.5-5.1); SGOT/AST 12 IU/L (3-35); SGPT/ALT 17 U/L (12-78); SODIUM 141 mmol/L (136-145)
[2018-01-06 18:23] LABS: ETHYL ALCOHOL < 3.0 mg/dl (<3)
[2018-01-06 18:57] LABS: ACETAMINOPHEN (TYLENOL) < 5.0 ug/ml (10-30)
[2018-01-06 19:05] LABS: BILIRUBIN NEGATIVE (NEGATIVE); BLOOD 1+ (NEGATIVE); CLARITY SL CLOUDY (CLEAR); COLOR YELLOW (YELLOW); GLUCOSE 1+ (NEGATIVE); KETONE TRACE (NEGATIVE); LEUKO ESTERASE NEGATIVE (NEGATIVE); NITRITE NEGATIVE (NEGATIVE); PH 5.5 (5.0-9.0); SPECIFIC GRAVITY 1.025 (1.005-1.030); UROBILINOGEN 0.2 E.U./dl (0.2-1.0)
[2018-01-06 19:13] LABS: URINE AMPHETAMINES < 1000 (1000ng/ml); URINE BARBITURATES < 200 (200ng/ml); URINE BENZODIAZEPINES > 200 (200ng/ml); URINE CANNABINOIDS (THC) < 50 (50ng/ml); URINE COCAINE < 300 (300ng/ml); URINE METHADONE < 300 (300ng/ml); URINE OPIATES < 300 (300ng/ml)
[2018-01-06 19:14] LABS: URINE PHENCYCLIDINE < 25 (25ng/ml)
[2018-01-06 19:30] LABS: BACTERIA 2+; EPITHELIAL CELLS 16-20; MUCOUS 1+
== END 2018-01-06 19:17 | disposition home or self-care (01) ==
LOC: ED 17:09
PROVIDERS: Nurse Practitioner Family
DX: F31.9 Bipolar disorder, unspecified (principal); F25.9 Schizoaffective disorder, unspecified; Z79.899 Other long term (current) drug therapy; Z79.82 Long term (current) use of aspirin

== ENCOUNTER 2018-01-26 22:04 | Emergency (ER) | payer OTHER ==
[~2018-01-26] VITALS: Ht 167.6 cm; Wt 74.8 kg
--- NOTE | ~2018-01-26 | EKG ---
[place], [place] ELECTROCARDIOGRAM REPORT NAME: GAY OWEN UNIT #: [id number] ROOM: DOCTOR: PAOLO DRAFT REPORT BIRTHDATE: [birth year] [facility] Test Date: 2018-01-27 Test Time: 00:37:01 Pat Name: GAY OWEN Department: Room: Gender: F Automatic I Threading Machine Feeder: : 1970 Requested By: KAREN PRO Order Number: [id number] Reading MD: Measurements Intervals [place] Rate: 94 P: 73 NV: 163 QRS: 25 QRSD: 91 T: 35 QT: 365 QTc: 457 Interpretive Statements Sinus rhythm Probable left atrial enlargement ST elev, probable normal early repol pattern Compared to ECG 01/06/2018 17:51:11 ST (T wave) deviation now present Sinus tachycardia no longer present CM:EKGRPT:ELECTROCARDIOGRAM REPORT 0037 [id number] KAREN HUNG DRAFT REPORT KAREN PRO DO
[2018-01-27 00:45] LABS: BASO # 0.1 10*3/uL (0.0-0.1); BASO % 0.3 % (0.0-1.0); EOS % 0.2 % (1.0-4.0); HEMOGLOBIN 13.6 g/dl (12.0-16.0); LYMPH # 1.7 10*3/uL (1.3-4.4); LYMPH % 11.4 % (27.0-41.0); MEAN CELL VOLUME 89.9 fl (81.0-99.0); MEAN CORPUSCULAR HGB 29.8 pg (27.0-31.0); MEAN CORPUSCULAR HGB CONC 33.2 g/dl (33.0-37.0); MEAN PLATELET VOLUME 10.1 fl (9.6-12.3); MONO % 6.8 % (3.0-9.0); NEUT % 80.9 % (47.0-73.0); PLATELET COUNT AUTOMATED 180 10*3/uL (130-400); RED BLOOD COUNT 4.56 10*6/uL (4.10-5.10); RED CELL DISTRI WIDTH 13.9 % (0-14.5); WHITE BLOOD COUNT 14.9 10*3/uL (4.8-10.8)
[2018-01-27 01:07] LABS: ALBUMIN 3.6 gm/dl (3.1-4.5); ALKALINE PHOSPHATASE 52 U/L (45-117); CHLORIDE 108 mmol/L (98-107); CREATININE 0.98 mg/dL (0.55-1.02); POTASSIUM 3.9 mmol/L (3.5-5.1); SGOT/AST 14 IU/L (3-35); SODIUM 142 mmol/L (136-145); TOTAL PROTEIN 7.2 gm/dL (6.4-8.2)
[2018-01-27 01:09] LABS: BUN 13 mg/dl (7-24); SGPT/ALT 17 U/L (12-78)
[2018-01-27 01:10] LABS: ACETAMINOPHEN (TYLENOL) < 5.0 ug/ml (10-30)
[2018-01-27 01:15] LABS: ETHYL ALCOHOL < 3.0 mg/dl (<3)
[2018-01-27 08:47] VITALS: BP 93/52
== END 2018-01-27 11:20 | disposition home or self-care (01) ==
LOC: ED 22:04
PROVIDERS: Emergency Medicine
DX: F31.9 Bipolar disorder, unspecified (principal); F10.129 Alcohol abuse with intoxication, unspecified; F23 Brief psychotic disorder; F25.9 Schizoaffective disorder, unspecified; Z79.899 Other long term (current) drug therapy; Z79.84 Long term (current) use of oral hypoglycemic drugs; Z79.82 Long term (current) use of aspirin

== ENCOUNTER 2018-01-29 20:24 | Emergency (ER) | payer OTHER ==
[~2018-01-29] VITALS: Wt 86.2 kg
[2018-01-29 21:00] LABS: BILIRUBIN NEGATIVE (NEGATIVE); BLOOD NEGATIVE (NEGATIVE); CLARITY CLEAR (CLEAR); COLOR YELLOW (YELLOW); GLUCOSE 3+ (NEGATIVE); KETONE 1+ (NEGATIVE); LEUKO ESTERASE NEGATIVE (NEGATIVE); NITRITE NEGATIVE (NEGATIVE); PH 5.5 (5.0-9.0); UROBILINOGEN 0.2 E.U./dl (0.2-1.0)
[2018-01-29 21:09] LABS: URINE AMPHETAMINES < 1000 (1000ng/ml); URINE BARBITURATES < 200 (200ng/ml); URINE BENZODIAZEPINES < 200 (200ng/ml); URINE CANNABINOIDS (THC) < 50 (50ng/ml); URINE COCAINE < 300 (300ng/ml); URINE METHADONE < 300 (300ng/ml); URINE OPIATES < 300 (300ng/ml)
[2018-01-29 21:12] LABS: URINE PHENCYCLIDINE < 25 (25ng/ml)
[2018-01-29 21:15] LABS: EPITHELIAL CELLS 15-20
[2018-01-30 11:03] VITALS: BP 124/68
== END 2018-01-30 14:06 | disposition home or self-care (01) ==
LOC: ED 20:24
PROVIDERS: Student in an Organized Health Care Education/Training Program
DX: F20.9 Schizophrenia, unspecified (principal); F31.9 Bipolar disorder, unspecified; Z79.899 Other long term (current) drug therapy; Z79.82 Long term (current) use of aspirin; Z79.84 Long term (current) use of oral hypoglycemic drugs

== ENCOUNTER 2018-03-29 14:09 | Emergency (ER) | payer OTHER ==
[2018-03-29 17:17] LABS: BASO % 0.3 % (0.0-1.0); EOS % 0.4 % (1.0-4.0); HEMATOCRIT 45.4 % (37.0-47.0); HEMOGLOBIN 15.3 g/dl (12.0-16.0); LYMPH # 2.7 10*3/uL (1.3-4.4); LYMPH % 24.5 % (27.0-41.0); MEAN CELL VOLUME 88.3 fl (81.0-99.0); MEAN CORPUSCULAR HGB 29.8 pg (27.0-31.0); MEAN CORPUSCULAR HGB CONC 33.7 g/dl (33.0-37.0); MEAN PLATELET VOLUME 10.4 fl (9.6-12.3); MONO # 0.8 10*3/uL (0.1-1.0); MONO % 7.3 % (3.0-9.0); NEUT # 7.4 10*3/uL (2.3-7.9); NEUT % 67.2 % (47.0-73.0); PLATELET COUNT AUTOMATED 236 10*3/uL (130-400); RED BLOOD COUNT 5.14 10*6/uL (4.10-5.10); RED CELL DISTRI WIDTH 13.9 % (0-14.5)
[2018-03-29 17:17] LABS: URINE AMPHETAMINES < 1000 (1000ng/ml); URINE BARBITURATES < 200 (200ng/ml); URINE BENZODIAZEPINES < 200 (200ng/ml); URINE CANNABINOIDS (THC) < 50 (50ng/ml); URINE COCAINE < 300 (300ng/ml); URINE METHADONE < 300 (300ng/ml); URINE OPIATES < 300 (300ng/ml)
[2018-03-29 17:20] LABS: URINE PHENCYCLIDINE < 25 (25ng/ml)
[2018-03-29 17:26] LABS: BILIRUBIN NEGATIVE (NEGATIVE); BLOOD NEGATIVE (NEGATIVE); CLARITY CLEAR (CLEAR); COLOR YELLOW (YELLOW); GLUCOSE 3+ (NEGATIVE); KETONE NEGATIVE (NEGATIVE); LEUKO ESTERASE NEGATIVE (NEGATIVE); NITRITE NEGATIVE (NEGATIVE); SPECIFIC GRAVITY <= 1.005 (1.005-1.030); UROBILINOGEN 0.2 E.U./dl (0.2-1.0)
[2018-03-29 17:30] LABS: BUN 9 mg/dl (7-24); CHLORIDE 103 mmol/L (98-107); CREATININE 0.91 mg/dL (0.55-1.02); POTASSIUM 4.2 mmol/L (3.5-5.1); SODIUM 135 mmol/L (136-145)
[2018-03-29 17:34] LABS: EPITHELIAL CELLS 0-1; RBC 0-2 rbc/hpf (0-2)
[2018-03-29 17:38] LABS: ACETAMINOPHEN (TYLENOL) < 5.0 ug/ml (10-30); ETHYL ALCOHOL < 3.0 mg/dl (<3)
== END 2018-03-29 20:14 | disposition home health service (06) ==
LOC: ED 14:09
PROVIDERS: Emergency Medicine
DX: R45.6 Violent behavior (principal); F31.9 Bipolar disorder, unspecified; F25.9 Schizoaffective disorder, unspecified; Z79.899 Other long term (current) drug therapy; Z79.82 Long term (current) use of aspirin

== ENCOUNTER 2018-11-25 08:52 | Emergency (ER) | payer OTHER ==
[~2018-11-25] VITALS: Ht 167.6 cm; Wt 83.9 kg
[2018-11-25 09:01] VITALS: BP 163/107
== END 2018-11-25 10:33 | disposition home or self-care (01) ==
LOC: ED 08:52
DX: F31.9 Bipolar disorder, unspecified (principal); F25.9 Schizoaffective disorder, unspecified; Z79.899 Other long term (current) drug therapy; Z79.82 Long term (current) use of aspirin

== ENCOUNTER 2019-01-23 16:17 | Emergency (ER) | payer OTHER ==
[~2019-01-23] VITALS: Ht 162.5 cm; Wt 69.4 kg
[~2019-01-23 16:17] MED LIST changes: +ARISTADA882 MG/3.2 IM; +PROLIXIN IM
[2019-01-23 16:20] VITALS: BP 130/74
[2019-01-23 16:54] LABS: BILIRUBIN NEGATIVE (NEGATIVE); BLOOD NEGATIVE (NEGATIVE); CLARITY SL CLOUDY (CLEAR); COLOR YELLOW (YELLOW); GLUCOSE 1+ (NEGATIVE); KETONE TRACE (NEGATIVE); LEUKO ESTERASE NEGATIVE (NEGATIVE); NITRITE NEGATIVE (NEGATIVE); SPECIFIC GRAVITY 1.015 (1.005-1.030); UROBILINOGEN 0.2 E.U./dl (0.2-1.0)
[2019-01-23 17:01] LABS: BACTERIA 2+; WBC 0-2 wbc/hpf (0-5)
[2019-01-23] MEDS ORDERED: KEFLEX500 M1 PO (17:17)
== END 2019-01-23 17:24 | disposition home or self-care (01) ==
LOC: ED 16:17
PROVIDERS: Physician Assistant
DX: R30.0 Dysuria (principal); R31.9 Hematuria, unspecified; Z79.899 Other long term (current) drug therapy; Z79.82 Long term (current) use of aspirin

== ENCOUNTER 2019-02-05 09:53 | Emergency (ER) | payer OTHER ==
[~2019-02-05] VITALS: Ht 162.5 cm; Wt 69.4 kg
[~2019-02-05 09:53] MED LIST changes: +KEFLEX500 M1 PO
[2019-02-05 09:56] VITALS: BP 153/93
== END 2019-02-05 10:10 | disposition home or self-care (01) ==
LOC: ED 09:53
DX: J04.0 Acute laryngitis (principal); J02.9 Acute pharyngitis, unspecified; L98.9 Disorder of the skin and subcutaneous tissue, unspecified; F17.210 Nicotine dependence, cigarettes, uncomplicated; Z79.2 Long term (current) use of antibiotics; Z79.82 Long term (current) use of aspirin; Z79.899 Other long term (current) drug therapy

== ENCOUNTER 2019-02-08 11:13 | Emergency (ER) | payer OTHER ==
[~2019-02-08] VITALS: Ht 162.5 cm; Wt 74.8 kg
--- NOTE | ~2019-02-08 | EKG ---
[place], [place] ELECTROCARDIOGRAM REPORT NAME: GAY OWEN UNIT #: [id number] ROOM: DOCTOR: [facility] DRAFT REPORT BIRTHDATE: [birth year] [facility] Test Date: 2019-02-08 Test Time: 11:52:39 Pat Name: GAY OWEN Department: Room: [facility] Gender: F Butter Production Supervisor: : 1970 Requested By: VICENTE NORTON Order Number: [id number] Reading MD: Mark Lebron MD Measurements Intervals [place] Rate: 101 P: 39 GA: 135 QRS: 102 QRSD: 87 T: 0 QT: 344 QTc: 446 Interpretive Statements Sinus tachycardia Right axis deviation Borderline ST elevation, lateral leads Baseline wander in lead(s) II,III,aVF Compared to ECG 01/27/2018 00:37:01 Right-axis deviation now present Sinus rhythm no longer present ST (T wave) deviation still present Electronically Signed On 02-09-2019 12:47:25 PDT by Mark Lebron MD CM:EKGRPT:ELECTROCARDIOGRAM REPORT [id number] VICENTE BOONE DRAFT REPORT VICENTE NORTON M.D.
[2019-02-08 11:47] LABS: BASO % 0.6 % (0.0-1.0); EOS # 0.1 10*3/uL (0.0-0.4); EOS % 1.5 % (1.0-4.0); HEMOGLOBIN 16.2 g/dl (12.0-16.0); LYMPH # 2.1 10*3/uL (1.3-4.4); LYMPH % 31.5 % (27.0-41.0); MEAN CELL VOLUME 93.7 fl (81.0-99.0); MEAN CORPUSCULAR HGB CONC 33.1 g/dl (33.0-37.0); MEAN PLATELET VOLUME 10.2 fl (9.6-12.3); MONO # 0.5 10*3/uL (0.1-1.0); MONO % 7.3 % (3.0-9.0); NEUT # 3.9 10*3/uL (2.3-7.9); NEUT % 58.8 % (47.0-73.0); PLATELET COUNT AUTOMATED 205 10*3/uL (130-400); RED BLOOD COUNT 5.23 10*6/uL (4.10-5.10); RED CELL DISTRI WIDTH 13.6 % (0-14.5); WHITE BLOOD COUNT 6.6 10*3/uL (4.8-10.8)
[2019-02-08 11:59] LABS: BUN 10 mg/dl (7-24); CHLORIDE 108 mmol/L (98-107); CREATININE 0.75 mg/dL (0.55-1.02); SODIUM 140 mmol/L (136-145)
[2019-02-08 12:00] LABS: ACETAMINOPHEN (TYLENOL) < 5.0 ug/ml (10-30); ETHYL ALCOHOL < 3.0 mg/dl (<3)
[2019-02-08 13:02] LABS: BILIRUBIN NEGATIVE (NEGATIVE); BLOOD NEGATIVE (NEGATIVE); CLARITY CLOUDY (CLEAR); COLOR YELLOW (YELLOW); GLUCOSE 3+ (NEGATIVE); KETONE NEGATIVE (NEGATIVE); LEUKO ESTERASE NEGATIVE (NEGATIVE); NITRITE NEGATIVE (NEGATIVE); UROBILINOGEN 0.2 E.U./dl (0.2-1.0)
[2019-02-08 13:05] LABS: URINE AMPHETAMINES < 1000 (1000ng/ml); URINE BARBITURATES < 200 (200ng/ml); URINE BENZODIAZEPINES < 200 (200ng/ml); URINE CANNABINOIDS (THC) < 50 (50ng/ml); URINE COCAINE < 300 (300ng/ml); URINE METHADONE < 300 (300ng/ml); URINE OPIATES < 300 (300ng/ml)
[2019-02-08 13:07] LABS: URINE PHENCYCLIDINE < 25 (25ng/ml)
[2019-02-08 13:28] LABS: BACTERIA 1+; EPITHELIAL CELLS 30-40; YEAST 1+
[2019-02-08 16:37] LABS: ALKALINE PHOSPHATASE 74 U/L (45-117); BILIRUBIN, DIRECT < 0.1 mg/dL (0.0-0.2); SGOT/AST 18 IU/L (3-35); SGPT/ALT 23 U/L (12-78); TOTAL PROTEIN 8.3 gm/dL (6.4-8.2)
[2019-02-09 08:43] VITALS: BP 122/93
== END 2019-02-09 09:53 | disposition home health service (06) ==
LOC: ED 11:13
PROVIDERS: Emergency Medicine
DX: F23 Brief psychotic disorder (principal); F31.9 Bipolar disorder, unspecified; E11.9 Type 2 diabetes mellitus without complications; E78.00 Pure hypercholesterolemia, unspecified; F41.9 Anxiety disorder, unspecified; F17.200 Nicotine dependence, unspecified, uncomplicated; Z79.899 Other long term (current) drug therapy; Z79.82 Long term (current) use of aspirin

== ENCOUNTER 2019-02-28 17:43 | Emergency (ER) | payer OTHER ==
[~2019-02-28] VITALS: Ht 162.5 cm; Wt 74.4 kg
[2019-02-28 17:44] VITALS: BP 161/99
[2019-02-28] MEDS ORDERED: AMOXICILLIN500 M2 PO (18:33)
[2019-02-28] MEDS ORDERED: ZYRTEC10 MG PO (18:33)
== END 2019-02-28 18:45 | disposition home or self-care (01) ==
LOC: ED 17:43
DX: J01.90 Acute sinusitis, unspecified (principal); E11.9 Type 2 diabetes mellitus without complications; E78.00 Pure hypercholesterolemia, unspecified; F17.200 Nicotine dependence, unspecified, uncomplicated; Z79.2 Long term (current) use of antibiotics; Z79.82 Long term (current) use of aspirin; Z79.899 Other long term (current) drug therapy

== ENCOUNTER → 2019-04-14 | Outpatient (CLI) | payer OTHER ==
[~2019-04-14] MED LIST changes: +AMOXICILLIN500 M2 PO
[2019-04-14 13:30] LABS: BILIRUBIN NEGATIVE (NEGATIVE); BLOOD TRACE-INTACT (NEGATIVE); CLARITY SL CLOUDY (CLEAR); COLOR YELLOW (YELLOW); GLUCOSE 3+ (NEGATIVE); KETONE NEGATIVE (NEGATIVE); LEUKO ESTERASE NEGATIVE (NEGATIVE); NITRITE NEGATIVE (NEGATIVE); PH 5.5 (5.0-9.0); UROBILINOGEN 0.2 E.U./dl (0.2-1.0)
[2019-04-14 13:39] LABS: BACTERIA 1+; WBC 0-2 wbc/hpf (0-5)
[2019-04-15 07:05] LABS: HEPATITIS B SURFACE AG Negative (Negative); HEPATITIS C VIRUS ANTIBODY <0.1 s/co (0.0-0.9)
[2019-04-18 00:04] LABS: GONOCOCCUS BY NAA Negative (Negative)
== END | disposition home or self-care (01) ==
LOC: LAB 12:42
PROVIDERS: Surgery
DX: E11.65 Type 2 diabetes mellitus with hyperglycemia (principal); Z20.2 Contact with and (suspected) exposure to infections with a predominantly sexual mode of transmission

== ENCOUNTER 2019-12-04 13:45 | Emergency (ER) | payer OTHER ==
[~2019-12-04] VITALS: Ht 172.7 cm; Wt 86.2 kg
[2019-12-04 21:33] LABS: BILIRUBIN NEGATIVE (NEGATIVE); BLOOD NEGATIVE (NEGATIVE); CLARITY CLEAR (CLEAR); COLOR YELLOW (YELLOW); GLUCOSE 3+ (NEGATIVE); KETONE NEGATIVE (NEGATIVE); PH 5.5 (5.0-9.0); UROBILINOGEN 0.2 E.U./dl (0.2-1.0)
[2019-12-04 21:34] LABS: LEUKO ESTERASE NEGATIVE (NEGATIVE); NITRITE NEGATIVE (NEGATIVE)
[2019-12-04 21:38] LABS: RBC 0-2 rbc/hpf (0-2); WBC 0-2 wbc/hpf (0-5)
[2019-12-04 21:39] LABS: BACTERIA TRACE; EPITHELIAL CELLS 0-2
[2019-12-04 21:40] LABS: URINE AMPHETAMINES < 1000 (1000ng/ml); URINE BARBITURATES < 200 (200ng/ml); URINE BENZODIAZEPINES < 200 (200ng/ml); URINE CANNABINOIDS (THC) < 50 (50ng/ml); URINE COCAINE < 300 (300ng/ml); URINE METHADONE < 300 (300ng/ml); URINE OPIATES < 300 (300ng/ml)
[2019-12-04 21:42] LABS: URINE PHENCYCLIDINE < 25 (25ng/ml)
[2019-12-04 21:45] LABS: BASO % 0.5 % (0.0-1.0); EOS # 0.3 10*3/uL (0.0-0.4); EOS % 3.6 % (1.0-4.0); HEMATOCRIT 44.6 % (37.0-47.0); LYMPH # 2.5 10*3/uL (1.3-4.4); LYMPH % 32.8 % (27.0-41.0); MEAN CELL VOLUME 88.7 fl (81.0-99.0); MEAN CORPUSCULAR HGB 29.6 pg (27.0-31.0); MEAN CORPUSCULAR HGB CONC 33.4 g/dl (33.0-37.0); MEAN PLATELET VOLUME 9.9 fl (9.6-12.3); MONO # 0.6 10*3/uL (0.1-1.0); MONO % 8.2 % (3.0-9.0); NEUT # 4.1 10*3/uL (2.3-7.9); NEUT % 54.6 % (47.0-73.0); PLATELET COUNT AUTOMATED 226 10*3/uL (130-400); RED BLOOD COUNT 5.03 10*6/uL (4.10-5.10); RED CELL DISTRI WIDTH 13.2 % (0-14.5); WHITE BLOOD COUNT 7.6 10*3/uL (4.8-10.8)
[2019-12-04 22:00] LABS: ACETAMINOPHEN (TYLENOL) < 5.0 ug/ml (10-30); ALBUMIN 3.2 gm/dl (3.1-4.5); ALKALINE PHOSPHATASE 84 U/L (45-117); BUN 11 mg/dl (7-24); CHLORIDE 107 mmol/L (98-107); CREATININE 0.92 mg/dL (0.55-1.02); INTERNATIONAL NORM RATIO 0.9 (2.0-3.5); LIPASE 128 U/L (73-393); SGOT/AST 22 IU/L (3-35); SGPT/ALT 23 U/L (12-78); SODIUM 136 mmol/L (136-145); TOTAL PROTEIN 6.8 gm/dL (6.4-8.2); TROPONIN I < 0.015 ng/ml (<0.045)
[2019-12-04 22:01] LABS: ETHYL ALCOHOL < 3.0 mg/dl (<3)
[2019-12-05 11:30] VITALS: BP 124/68
== END 2019-12-05 13:15 | disposition home health service (06) ==
LOC: ED 13:45
PROVIDERS: Emergency Medicine; Internal Medicine
DX: F25.0 Schizoaffective disorder, bipolar type (principal); Z79.899 Other long term (current) drug therapy; Z79.82 Long term (current) use of aspirin

== ENCOUNTER 2019-12-27 19:29 | Emergency (ER) | payer OTHER ==
[2019-12-27 20:13] LABS: BILIRUBIN NEGATIVE; BLOOD NEGATIVE (NEGATIVE); CLARITY CLEAR (CLEAR); COLOR YELLOW (YELLOW); GLUCOSE 3+; KETONE TRACE; LEUKO ESTERASE NEGATIVE (NEGATIVE); NITRITE NEGATIVE (NEGATIVE)
[2019-12-27 20:18] LABS: BACTERIA 2+; RBC 0-2 rbc/hpf (0-2)
[2019-12-27 20:19] LABS: URINE AMPHETAMINES < 1000 (1000ng/ml); URINE BARBITURATES < 200 (200ng/ml); URINE BENZODIAZEPINES < 200 (200ng/ml); URINE CANNABINOIDS (THC) < 50 (50ng/ml); URINE COCAINE < 300 (300ng/ml); URINE METHADONE < 300 (300ng/ml); URINE OPIATES < 300 (300ng/ml)
[2019-12-27 20:20] LABS: URINE PHENCYCLIDINE < 25 (25ng/ml)
[2019-12-27 20:27] LABS: BASO # 0.1 10*3/uL (0.0-0.1); BASO % 0.5 % (0.0-1.0); EOS # 0.2 10*3/uL (0.0-0.4); EOS % 1.8 % (1.0-4.0); HEMATOCRIT 46.7 % (37.0-47.0); LYMPH # 3.1 10*3/uL (1.3-4.4); LYMPH % 30.4 % (27.0-41.0); MEAN CELL VOLUME 87.1 fl (81.0-99.0); MEAN CORPUSCULAR HGB 29.1 pg (27.0-31.0); MEAN CORPUSCULAR HGB CONC 33.4 g/dl (33.0-37.0); MEAN PLATELET VOLUME 10.4 fl (9.6-12.3); MONO # 0.7 10*3/uL (0.1-1.0); MONO % 6.8 % (3.0-9.0); NEUT # 6.2 10*3/uL (2.3-7.9); NEUT % 60.2 % (47.0-73.0); PLATELET COUNT AUTOMATED 226 10*3/uL (130-400); RED BLOOD COUNT 5.36 10*6/uL (4.10-5.10); WHITE BLOOD COUNT 10.2 10*3/uL (4.8-10.8)
[2019-12-27 20:41] LABS: ALKALINE PHOSPHATASE 85 U/L (45-117); BUN 8 mg/dl (7-24); CHLORIDE 106 mmol/L (98-107); CREATININE 0.71 mg/dL (0.55-1.02); POTASSIUM 3.8 mmol/L (3.5-5.1); SGOT/AST 16 IU/L (3-35); SGPT/ALT 28 U/L (12-78); SODIUM 139 mmol/L (136-145); TOTAL PROTEIN 8.2 gm/dL (6.4-8.2)
[2019-12-27 20:50] LABS: ACETAMINOPHEN (TYLENOL) < 5.0 ug/ml (10-30); ETHYL ALCOHOL < 3.0 mg/dl (<3)
[2019-12-28 03:45] VITALS: BP 132/84
== END 2019-12-28 11:19 | disposition short-term general hospital (02) ==
LOC: ED 19:29
PROVIDERS: Emergency Medicine
DX: F25.9 Schizoaffective disorder, unspecified (principal); Z79.899 Other long term (current) drug therapy; Z79.82 Long term (current) use of aspirin

== ENCOUNTER 2022-03-27 09:20 | Emergency (ER) | payer MEDICAID ==
[~2022-03-27] VITALS: Ht 162.5 cm; Wt 77.1 kg
[2022-03-27 09:29] VITALS: BP 114/74
[2022-03-27] MEDS ORDERED: DOXEPIN25 MG PO (09:39)
== END 2022-03-27 10:49 | disposition home or self-care (01) ==
LOC: ED 09:20
DX: R21 Rash and other nonspecific skin eruption (principal); Z20.822 Contact with and (suspected) exposure to COVID-19; B34.9 Viral infection, unspecified; Z79.899 Other long term (current) drug therapy; Z79.82 Long term (current) use of aspirin; Z98.890 Other specified postprocedural states

== ENCOUNTER 2022-05-16 13:17 | Emergency (ER) | payer MEDICAID ==
[~2022-05-16] VITALS: Wt 81.6 kg
[~2022-05-16 13:17] MED LIST changes: +DOXEPIN25 MG PO
[2022-05-16 13:21] VITALS: BP 131/90
[2022-05-16] MEDS ORDERED: DIFLUCAN150 MG PO ×3 (13:42→14:00)
[2022-05-16] MEDS ORDERED: CEPHALEXIN500 M1 PO ×3 (13:42→14:00)
[2022-05-16] MEDS ORDERED: ELIMITE 5%60 GM T ×3 (13:42→14:00)
[2022-05-16] MEDS ORDERED: MEDROL DOSEPAK4 MG PO (14:00)
== END 2022-05-16 14:05 | disposition home or self-care (01) ==
LOC: ED 13:17
DX: B86 Scabies (principal); J06.9 Acute upper respiratory infection, unspecified; Z98.890 Other specified postprocedural states; F10.90 Alcohol use, unspecified, uncomplicated; B37.9 Candidiasis, unspecified

== ENCOUNTER 2022-06-30 03:02 | Emergency (ER) | payer OTHER ==
[~2022-06-30 03:02] MED LIST changes: +CEPHALEXIN500 M1 PO; +ELIMITE 5%60 GM T
[2022-06-30 03:11] VITALS: BP 151/93
[2022-06-30] MEDS ORDERED: AMOXICILLIN500 M2 PO (04:28)
== END 2022-06-30 05:24 | disposition home or self-care (01) ==
LOC: ED 03:02
DX: K02.9 Dental caries, unspecified (principal); K08.89 Other specified disorders of teeth and supporting structures; F31.9 Bipolar disorder, unspecified; F20.9 Schizophrenia, unspecified; E11.9 Type 2 diabetes mellitus without complications; F41.9 Anxiety disorder, unspecified; Z98.890 Other specified postprocedural states; F17.200 Nicotine dependence, unspecified, uncomplicated

== ENCOUNTER 2022-07-30 12:12 | Emergency (ER) | payer OTHER ==
[~2022-07-30] VITALS: Wt 69.4 kg
[2022-07-30 12:29] LABS: BILIRUBIN Negative (Negative); BLOOD 2+ (Negative); CLARITY Clear (Clear); COLOR Yellow (Yellow); GLUCOSE 3+ (Negative); KETONE Trace (Negative); LEUKO ESTERASE 1+ (Negative); NITRITE Negative (Negative); SPECIFIC GRAVITY >= 1.030 (1.001-1.030); UROBILINOGEN 0.2 E.U./dl (0.0-1.0)
[2022-07-30 12:33] LABS: URINE AMPHETAMINES Negative (1000ng/ml); URINE BARBITURATES Negative (200ng/ml); URINE BENZODIAZEPINES Negative (200ng/ml); URINE CANNABINOIDS (THC) Negative (50ng/ml); URINE COCAINE Negative (300ng/ml); URINE METHADONE Negative (300ng/ml); URINE OPIATES Negative (300ng/ml); URINE PHENCYCLIDINE Negative (25ng/ml)
[2022-07-30 12:39] LABS: BACTERIA 2+; EPITHELIAL CELLS 21-30; WBC 31-40 wbc/hpf (0-5); YEAST TRACE
[2022-07-30 12:47] LABS: BASO % 0.4 % (0.0-1.0); EOS # 0.1 10*3/uL (0.0-0.4); HEMATOCRIT 46.1 % (37.0-47.0); LYMPH # 2.3 10*3/uL (1.3-4.4); LYMPH % 27.3 % (27.0-41.0); MEAN CELL VOLUME 89.3 fl (81.0-99.0); MEAN CORPUSCULAR HGB 30.6 pg (27.0-31.0); MEAN CORPUSCULAR HGB CONC 34.3 g/dl (33.0-37.0); MEAN PLATELET VOLUME 10.3 fl (9.6-12.3); MONO # 0.5 10*3/uL (0.1-1.0); MONO % 5.8 % (3.0-9.0); NEUT # 5.5 10*3/uL (2.3-7.9); NEUT % 65.1 % (47.0-73.0); PLATELET COUNT AUTOMATED 193 10*3/uL (130-400); RED BLOOD COUNT 5.16 10*6/uL (4.10-5.10); WHITE BLOOD COUNT 8.4 10*3/uL (4.8-10.8)
[2022-07-30 13:16] LABS: ALKALINE PHOSPHATASE 108 U/L (46-116); BUN 8 mg/dl (9-23); CHLORIDE 101 mmol/L (98-107); POTASSIUM 3.7 mmol/L (3.4-5.1); SGPT/ALT 13 U/L (10-49); TOTAL PROTEIN 7.1 gm/dL (6.0-8.0)
[2022-07-30 13:25] LABS: ETHYL ALCOHOL < 3.0 mg/dl (<3)
[2022-07-31 09:18] VITALS: BP 137/68
== END 2022-07-31 20:25 ==
LOC: ED 12:12
PROVIDERS: Emergency Medicine
DX: F31.9 Bipolar disorder, unspecified (principal); F20.9 Schizophrenia, unspecified; Z20.822 Contact with and (suspected) exposure to COVID-19; Z79.899 Other long term (current) drug therapy; Z79.82 Long term (current) use of aspirin; Z98.890 Other specified postprocedural states

== ENCOUNTER 2022-08-10 07:55 | Emergency (ER) | payer OTHER ==
[~2022-08-10] VITALS: Ht 162.5 cm; Wt 64.9 kg
[2022-08-10 08:21] VITALS: BP 104/67
[2022-08-10] MEDS ORDERED: BUSPIRONE HCL10 MG PO (08:27)
[2022-08-10] MEDS ORDERED: Motrin,Rufen800 MG PO (08:38)
[2022-08-10] MEDS ORDERED: HYDROXYZINE HCL25 MG PO (08:38)
[2022-08-10] MEDS ORDERED: ELIMITE 5%60 GM T (08:38)
== END 2022-08-10 08:47 | disposition home or self-care (01) ==
LOC: ED 07:55
DX: K12.0 Recurrent oral aphthae (principal); R21 Rash and other nonspecific skin eruption; E11.9 Type 2 diabetes mellitus without complications; F41.9 Anxiety disorder, unspecified; F32.A Depression, unspecified; Z98.890 Other specified postprocedural states

== ENCOUNTER 2022-09-10 10:20 | Emergency (ER) | payer OTHER ==
[~2022-09-10 10:20] MED LIST changes: +BUSPIRONE HCL10 MG PO; +HYDROXYZINE HCL25 MG PO; +Motrin,Rufen800 MG PO
[2022-09-10 10:27] VITALS: BP 00/00
== END 2022-09-10 11:22 | disposition home or self-care (01) ==
LOC: ED 10:20
DX: F25.9 Schizoaffective disorder, unspecified (principal); E11.9 Type 2 diabetes mellitus without complications; F41.9 Anxiety disorder, unspecified; F32.A Depression, unspecified; Z98.890 Other specified postprocedural states

== ENCOUNTER 2022-09-17 20:49 | Emergency (ER) | payer OTHER ==
[~2022-09-17] VITALS: Wt 79.4 kg
== END 2022-09-17 21:40 | disposition left against medical advice (07) ==
LOC: ED 20:49
DX: F20.9 Schizophrenia, unspecified (principal); F31.9 Bipolar disorder, unspecified; Z79.899 Other long term (current) drug therapy; Z98.890 Other specified postprocedural states

== ENCOUNTER 2022-09-23 12:03 | Emergency (ER) | payer OTHER ==
[~2022-09-23] VITALS: Wt 93.0 kg
[2022-09-23 14:07] LABS: BILIRUBIN Negative (Negative); BLOOD Negative (Negative); CLARITY Clear (Clear); COLOR Yellow (Yellow); GLUCOSE 3+ (Negative); KETONE Negative (Negative); LEUKO ESTERASE Negative (Negative); NITRITE Negative (Negative); SPECIFIC GRAVITY >= 1.030 (1.001-1.030); UROBILINOGEN 0.2 E.U./dl (0.0-1.0)
[2022-09-23 14:15] LABS: URINE AMPHETAMINES Negative (1000ng/ml); URINE BARBITURATES Negative (200ng/ml); URINE BENZODIAZEPINES Negative (200ng/ml); URINE CANNABINOIDS (THC) Negative (50ng/ml); URINE COCAINE Negative (300ng/ml); URINE METHADONE Negative (300ng/ml); URINE OPIATES Negative (300ng/ml); URINE PHENCYCLIDINE Negative (25ng/ml)
[2022-09-23 14:18] LABS: BACTERIA 1+; YEAST 1+
[2022-09-23 14:36] LABS: BASO % 0.5 % (0.0-1.0); EOS # 0.1 10*3/uL (0.0-0.4); EOS % 0.9 % (1.0-4.0); HEMATOCRIT 48.9 % (37.0-47.0); LYMPH # 1.5 10*3/uL (1.3-4.4); LYMPH % 18.4 % (27.0-41.0); MEAN CELL VOLUME 90.9 fl (81.0-99.0); MEAN CORPUSCULAR HGB 30.1 pg (27.0-31.0); MEAN CORPUSCULAR HGB CONC 33.1 g/dl (33.0-37.0); MEAN PLATELET VOLUME 10.9 fl (9.6-12.3); MONO # 0.5 10*3/uL (0.1-1.0); MONO % 6.6 % (3.0-9.0); NEUT % 73.4 % (47.0-73.0); PLATELET COUNT AUTOMATED 204 10*3/uL (130-400); RED BLOOD COUNT 5.38 10*6/uL (4.10-5.10); RED CELL DISTRI WIDTH 12.8 % (0-14.5); WHITE BLOOD COUNT 8.2 10*3/uL (4.8-10.8)
[2022-09-23 14:58] LABS: ACT PARTIAL THROMBO TIME 31.8 SECONDS (20.0-32.1)
[2022-09-23 15:05] LABS: ALKALINE PHOSPHATASE 126 U/L (46-116); CHLORIDE 98 mmol/L (98-107); CPK 218 U/L (34-171); LIPASE 34 U/L (12-53); POTASSIUM 3.6 mmol/L (3.4-5.1); SGPT/ALT 17 U/L (10-49); TOTAL PROTEIN 7.5 gm/dL (6.0-8.0)
[2022-09-23 15:07] LABS: BUN < 5 mg/dl (9-23); ETHYL ALCOHOL < 3.0 mg/dl (<3); VALPROIC ACID (DEPAKENE) < 3.0 ug/ml (50-100)
[2022-09-24 09:33] VITALS: BP 130/70
== END 2022-09-24 10:39 ==
LOC: ED 12:03
PROVIDERS: Emergency Medicine
DX: F25.9 Schizoaffective disorder, unspecified (principal); E11.9 Type 2 diabetes mellitus without complications; F41.9 Anxiety disorder, unspecified; F32.A Depression, unspecified; Z98.890 Other specified postprocedural states; Z79.899 Other long term (current) drug therapy